=== PATIENT | male | born 1945 | race Caucasian/White ===

== ENCOUNTER 2022-05-21 20:30 | Inpatient (IN) | payer OTHER, BC ==
[2022-05-21] MEDS ORDERED: CEFTRIAXONE 1 GM in DEXTROSE 5%-WATER - 50 ML IVPB ONE (21:50)
[2022-05-21] MEDS ORDERED: cefTRIAXone SODIUM 1 GM VIAL ONE (21:54)
[2022-05-21 22:29] LABS: HEMATOCRIT 43.5 % (35.4-49); HEMOGLOBIN 14.9 G/dL (11.7-16.9); MCHC 34.2 g/dl (32.0-35.9); MEAN CELL VOLUME 90.7 fl (80-96); MEAN PLT VOLUME 8.2 fl (7.5-11.1); PLATELET COUNT 124.2 10^3/uL (134-434); RDW 14.1 % (11.9-15.9); WHITE BLOOD COUNT 7.2 10^3/uL (4.0-10.8)
[2022-05-21 22:36] LABS: ALBUMIN 3.7 g/dl (3.4-5.0); BILIRUBIN,TOTAL 0.8 mg/dl (0.2-1); CALCIUM 8.6 mg/dl (8.5-10)
[2022-05-21 23:10] LABS: INR 1.09 (0.83-1.09); PROTHROMBIN TIME (PATIENT) 12.5 SEC (9.7-13.0)
[2022-05-21 23:13] LABS: ACTIVATED PTT 30.1 SECONDS (25.2-36.5)
[2022-05-21 23:27] LABS: PLATELET ESTIMATE SLT DECREASE
[2022-05-22] MEDS ORDERED: ZOLPIDEM TARTRATE 5 MG TABLET PO ONE (00:18)
[2022-05-22] MEDS ORDERED: SOD BORATE/BORIC AC/WATER/NACL (EYE WASH) 118 ML BOTTLE OU ONE ×2 (00:18→00:26)
[2022-05-22 06:22] VITALS: BMI 32.1
[2022-05-22] MEDS: LEVOTHYROXINE 100 MCG, LEVOTHYROXINE 75 MCG PO SCH (06:22)
[2022-05-22 08:27] LABS: CREATININE 0.9 mg/dl (0.55-1.3); MAGNESIUM 2.1 mg/dL (1.8-2.4)
[2022-05-22 08:30] LABS: HEMATOCRIT 40.4 % (35.4-49); HEMOGLOBIN 14.1 G/dL (11.7-16.9); MCH 30.8 pg (25.7-33.7); MCHC 34.8 g/dl (32.0-35.9); MEAN CELL VOLUME 88.4 fl (80-96); MEAN PLT VOLUME 7.7 fl (7.5-11.1); PLATELET COUNT 116.9 10^3/uL (134-434); RBC 4.57 10^6/uL (4.00-5.60); RDW 14.9 % (11.9-15.9); WHITE BLOOD COUNT 8.6 10^3/uL (4.0-10.8)
[2022-05-22 08:57] LABS: CALCIUM 8.2 mg/dl (8.5-10)
[2022-05-22] MEDS: LOSARTAN POTASSIUM 50 MG TABLET PO SCH (09:54)
[2022-05-22] MEDS ORDERED: CEFTRIAXONE 1 GM in DEXTROSE 5%-WATER - 50 ML IVPB ONE (10:00)
[2022-05-22] MEDS ORDERED: PATIENT'S OWN MEDICATION (NON-FORMULARY) (Levothyroxine Sodium [Levothyroxine] 175 MCG Cap PO SCH (10:00)
[2022-05-22 12:21] VITALS: RESP 18
[2022-05-22] MEDS: ROSUVASTATIN CA 20 MG TABLET PO SCH (21:04)
[2022-05-23] MEDS ORDERED: ZOLPIDEM TARTRATE 5 MG TABLET PO ONE ×2 (03:09→21:52)
[2022-05-23] MEDS: LEVOTHYROXINE 100 MCG, LEVOTHYROXINE 75 MCG PO SCH (06:59)
[2022-05-23] MEDS: LOSARTAN POTASSIUM 50 MG TABLET PO SCH (09:09)
[2022-05-23 10:07] LABS: CALCIUM 8.9 mg/dL (8.5-10.1)
[2022-05-23 10:08] LABS: ALBUMIN 3.5 g/dl (3.4-5.0); BASO % 0.3 % (0-2.0); BLOOD UREA NITROGEN 17.5 mg/dL (7-18); EOS % 5.1 % (0-4.5); HEMATOCRIT 44.8 % (35.4-49); LYMPH % 30.4 % (8-40); MCH 29.9 pg (25.7-33.7); MCHC 33.4 g/dl (32.0-35.9); MEAN CELL VOLUME 89.5 fl (80-96); MEAN PLT VOLUME 7.6 fl (7.5-11.1); MONO % 7.1 % (3.8-10.2); NEUT % 57.1 % (42.8-82.8); PLATELET COUNT 143 10^3/uL (134-434); RBC 5.01 M/mm3 (4.00-5.60); RDW 14.3 % (11.9-15.9); WHITE BLOOD COUNT 7.5 K/mm3 (4.0-10.0)
[2022-05-23 10:12] LABS: BILIRUBIN,TOTAL 0.8 mg/dL (0.2-1); TOT PROT 6.5 g/dl (6.4-8.2)
[2022-05-23] MEDS ORDERED: SODIUM CHLORIDE 500 ML IV STA (13:39)
[2022-05-23] MEDS: CEFTRIAXONE 1 GM in DEXTROSE 5%-WATER - 50 ML IVPB SCH (20:44)
[2022-05-23] MEDS: ROSUVASTATIN CA 20 MG TABLET PO SCH (22:13)
[2022-05-24] MEDS: LEVOTHYROXINE 100 MCG, LEVOTHYROXINE 75 MCG PO SCH (06:40)
[2022-05-24] MEDS: LOSARTAN POTASSIUM 50 MG TABLET PO SCH (09:00)
[2022-05-24] MEDS: CEFTRIAXONE 1 GM in DEXTROSE 5%-WATER - 50 ML IVPB SCH (09:00)
[2022-05-24 10:05] LABS: BASO % 0.5 % (0-2.0); EOS % 5.2 % (0-4.5); HEMATOCRIT 44.2 % (35.4-49); LYMPH % 27.3 % (8-40); MCH 30.5 pg (25.7-33.7); MCHC 33.9 g/dl (32.0-35.9); MEAN CELL VOLUME 90.2 fl (80-96); MEAN PLT VOLUME 7.9 fl (7.5-11.1); MONO % 7.1 % (3.8-10.2); NEUT % 59.9 % (42.8-82.8); PLATELET COUNT 143 10^3/uL (134-434); WHITE BLOOD COUNT 7.6 K/mm3 (4.0-10.0)
[2022-05-24 10:22] VITALS: BP 128/67; PULSE 61; TEMP 98
[2022-05-24 12:58] LABS: ALBUMIN 3.6 g/dl (3.4-5.0); BILIRUBIN,TOTAL 0.7 mg/dL (0.2-1); BLOOD UREA NITROGEN 16.2 mg/dL (7-18); CALCIUM 8.5 mg/dL (8.5-10.1); CREATININE 0.9 mg/dL (0.55-1.3); TOT PROT 6.6 g/dl (6.4-8.2)
== END 2022-05-24 17:00 | disposition home or self-care (01) | DRG 690 ==
LOC: FER 20:30 → FM/S 23:56 → J6S 05-23 06:30
PROVIDERS: ADMIT Internal Medicine
DX: N39.0 Urinary tract infection, site not specified (principal); E78.00 Pure hypercholesterolemia, unspecified; I10 Essential (primary) hypertension; E03.9 Hypothyroidism, unspecified; N40.1 Benign prostatic hyperplasia with lower urinary tract symptoms; R33.8 Other retention of urine; E66.9 Obesity, unspecified; Z68.32 Body mass index [BMI] 32.0-32.9, adult; F41.9 Anxiety disorder, unspecified; G47.00 Insomnia, unspecified; K76.9 Liver disease, unspecified; M89.9 Disorder of bone, unspecified; K57.30 Diverticulosis of large intestine without perforation or abscess without bleeding
CPT/HCPCS: 36415; 74178-TC; 80048; 80053; 81003; 81015; 83735; 85025; 85027; 85610; 85730; 87086; 87340; 87517; 99285-25; C9803-CS; Q9967; U0003; U0005

== ENCOUNTER 2022-05-27 01:50 | Emergency (ER) | payer OTHER, BC ==
[2022-05-27 02:12] VITALS: BP 158/86; BMI 31.9
[2022-05-27 06:15] LABS: EPI CELLS 5 /uL (0-25.1); HYALINE CASTS 0 /uL (0-3.1); URINE APPEARANCE TURBID; URINE BACTERIA 0 /uL (0-1359); URINE BILIRUBIN 1+ (NEGATIVE); URINE COLOR DK YELLOW; URINE GLUCOSE (UA) NEGATIVE (NEGATIVE); URINE KETONE NEGATIVE (NEGATIVE); URINE LEUK ESTERASE 1+ (NEGATIVE); URINE NITRITE NEGATIVE (NEGATIVE); URINE PROTEIN 3+ (NEGATIVE); URINE RBC 4399 /uL (0-23.9); URINE UROBILINOGEN 0.2 mg/dL (0.2-1.0); URINE WBC 62 /uL (0-25.8)
== END 2022-05-27 02:18 | disposition home or self-care (01) ==
LOC: FER 01:50
DX: T83.018A Breakdown (mechanical) of other urinary catheter, initial encounter (principal)
CPT/HCPCS: 81003; 87086; 99283-25